=== PATIENT | male | born 1985 | race African-American/Black ===

== ENCOUNTER 2024-10-08 02:32 | Emergency (ER) | payer OTHER ==
[~2024-10-08] VITALS: Ht 182.9 cm; Wt 76.0 kg
[~2024-10-08 02:32] MED LIST: DICY-18 PO; METR-167 PO
[2024-10-08 02:36] VITALS: O2SAT 98
[2024-10-08 02:55] VITALS: TEMP 36.94740
[2024-10-08] MEDS: METHOCARBAMOL 500MG TABLET PO ONE (04:02)
[2024-10-08] MEDS: KETOROLAC 30MG/ML VIAL IV ONE (04:02)
[2024-10-08 04:29] VITALS: BP 138/94; PULSE 96; RESP 18; O2SAT 98
[2024-10-08] MEDS ORDERED: METH-653 MT (04:37)
[2024-10-08] MEDS ORDERED: IBUP-2029 MT (04:37)
== END 2024-10-08 05:41 | disposition home or self-care (01) ==
LOC: ER 02:41
DX: S06.0X1A Concussion with loss of consciousness of 30 minutes or less, initial encounter (principal); S39.012A Strain of muscle, fascia and tendon of lower back, initial encounter; J45.909 Unspecified asthma, uncomplicated; Y04.0XXA Assault by unarmed brawl or fight, initial encounter; Y93.89 Activity, other specified; Y92.89 Other specified places as the place of occurrence of the external cause; Y99.8 Other external cause status
CPT/HCPCS: 70450; 72125; 72128; 72131; 96374; 99291; J1885; Z7610